=== PATIENT | male | born 1995 | race Caucasian/White ===

== ENCOUNTER 2021-12-08 11:31 | Emergency (ER) | payer SELFPAY ==
[~2021-12-08 11:31] MED LIST: PREDNISONE 50 M50 MG PO; PROVENTIL HFA6.7 GM INH; ZOFRAN ODT 4 MG4 MG PO
[2021-12-08] MEDS ORDERED: CYCLOBENZAPRINE10 MG PO (13:12)
== END 2021-12-08 13:18 | disposition home or self-care (01) ==
LOC: ER1 11:31
DX: M62.830 Muscle spasm of back (principal); F17.210 Nicotine dependence, cigarettes, uncomplicated; X50.9XXA Other and unspecified overexertion or strenuous movements or postures, initial encounter; Y99.0 Civilian activity done for income or pay
CPT/HCPCS: 72070; 96372; 99283; J1885

== ENCOUNTER 2021-12-22 14:09 | Emergency (ER) | payer SELFPAY ==
[~2021-12-22 14:09] MED LIST changes: +CYCLOBENZAPRINE10 MG PO
[2021-12-22 15:39] LABS: HEMOGLOBIN 14.1 gm/dl (14.0-17.5); RED BLOOD COUNT 4.74 M/UL (4.20-5.50); WHITE BLOOD COUNT 9.8 K/UL (4.5-11.0)
[2021-12-22 15:53] LABS: BUN/CREATININE RATIO 10 (0-10)
[2021-12-22] MEDS ORDERED: CYCLOBENZAPRINE10 MG PO (18:06)
[2021-12-22] MEDS ORDERED: IBUPROFEN600 MG PO (18:06)
== END 2021-12-22 18:24 | disposition home or self-care (01) ==
LOC: ER1 14:09
PROVIDERS: Emergency Medicine
DX: M54.6 Pain in thoracic spine (principal)
CPT/HCPCS: 72129; 72132; 80053; 85025; 85652; 86140; 99284; Q9967

== ENCOUNTER 2021-12-31 13:07 | Emergency (ER) | payer SELFPAY ==
[~2021-12-31 13:07] MED LIST changes: +IBUPROFEN600 MG PO
[2021-12-31] MEDS ORDERED: BENZONATATE200 MG PO (15:31)
== END 2021-12-31 16:01 | disposition home or self-care (01) ==
LOC: ER1 13:07
DX: U07.1 COVID-19 (principal)
CPT/HCPCS: 0240U; 87081; 87880; 99283